=== PATIENT | female | born 1965 | race Caucasian/White ===

== ENCOUNTER 2017-03-27 20:19 | Emergency (ER) | payer MEDICAID | END 2017-03-27 21:02 | disposition home or self-care (01) | LOC: D.ER 20:19 | DX: S21.259D Open bite of unspecified back wall of thorax without penetration into thoracic cavity, subsequent encounter (principal) ==

== ENCOUNTER 2019-06-06 12:04 | Emergency (ER) | payer MEDICAID ==
[~2019-06-06] VITALS: Ht 154.9 cm; Wt 81.8 kg
[2019-06-06 12:09] VITALS: BP 153/116; Ht 154.9 cm; Wt 81.8 kg
== END 2019-06-06 13:52 | disposition left against medical advice (07) ==
LOC: D.ER 12:04
DX: B99.9 Unspecified infectious disease (principal)